=== PATIENT | female | born 1955 | race Caucasian/White ===

== ENCOUNTER → 2021-07-01 | Outpatient (CLI) | payer MEDICARE, MEDICAID ==
[~2021-07-01] MED LIST: ACET-2267 PO; CALC-902 PO; DICL25TA PO; HYDR-3731 PO; HYDR2TAB6 PO; MAGN500C15 PO; MULT-974 PO; OMEG-82 PO
--- NOTE | 2021-07-01 12:36 | Diagnostic Imaging Report ---
EXAMINATION: Lumbosacral spine, 2 or 3 views. HISTORY: Lumbar pain. COMPARISON: None available. FINDINGS: There is severe degenerative disc disease at L3-L4 and L5-S1 with moderate degenerative disc disease at L4-L5 and L2-L3. Vertebral body heights are normal. No acute fracture is seen. There is right lateral listhesis of L3 on L4. There is mild retrolisthesis of L3 on L4. There is severe facet arthropathy at L4-L5. Surgical clips are seen in the pelvis. IMPRESSION: Severe degenerative disc and facet disease in the lumbar spine without acute fracture. Dictated by: Dictated on workstation # [id number]
== END ==
LOC: RAD FS 11:50
PROVIDERS: ATTEND Nurse Practitioner Family
DX: M47.816 Spondylosis without myelopathy or radiculopathy, lumbar region (principal); M51.36 Other intervertebral disc degeneration, lumbar region
CPT/HCPCS: 72100

== ENCOUNTER → 2021-09-30 | Outpatient (CLI) | payer MEDICARE, MEDICAID ==
--- NOTE | 2021-09-30 09:50 | Diagnostic Imaging Report ---
PROCEDURE: CT abdomen and pelvis without contrast. TECHNIQUE: Multiple contiguous axial images were obtained through the abdomen and pelvis without the use of intravenous contrast. Auto Exposure Controls were utilized during the CT exam to meet ALARA standards for radiation dose reduction. INDICATION: Right flank pain and right lower quadrant abdominal pain with nausea and vomiting. No prior studies are available for comparison. Imaging through the lung bases demonstrates what appears to be a large hiatal hernia. No discrete liver mass is identified. There are small stones layering within the gallbladder. No biliary duct dilatation is seen. Pancreas and spleen are unremarkable. No adrenal mass is detected. Left kidney is unremarkable. There is significant right-sided hydroureteronephrosis. The dilated right ureter is traced into the pelvis. There is a 6 mm calcific density which appears to be within the distal right ureter, several centimeters proximal to the UVJ. No bladder calculi are seen. Left-sided urinary tracts are unremarkable. Aorta is nonaneurysmal. There appear to be some surgical clips in the central retroperitoneum. Bowel loops are normal caliber. There is no obstruction. There is diverticulosis of the sigmoid but no evidence of acute diverticulitis. No free fluid or fluid collection is seen. No definite abdominal or pelvic lymphadenopathy is identified. IMPRESSION: 1. 6 mm distal right ureteric calculus producing significant right-sided hydroureteronephrosis. 2. Cholelithiasis. 3. Uncomplicated diverticulosis. Dictated by: Dictated on workstation # [id number]
== END ==
LOC: RAD FS 09:11
PROVIDERS: ATTEND Nurse Practitioner Family
DX: N13.30 Unspecified hydronephrosis (principal); N20.1 Calculus of ureter; K80.20 Calculus of gallbladder without cholecystitis without obstruction; K57.30 Diverticulosis of large intestine without perforation or abscess without bleeding
CPT/HCPCS: 74176

== ENCOUNTER → 2021-12-29 | Outpatient (CLI) | payer MEDICARE, MEDICAID ==
[~2021-12-29] MED LIST changes: -DICL25TA PO; +DICL25TA9 PO
--- NOTE | 2021-12-29 09:32 | Diagnostic Imaging Report ---
INDICATION: Foot fracture, pes planus COMPARISON: None. FINDINGS: 3 views the right foot demonstrate healing subacute to chronic fractures of the distal 2nd and 3rd metatarsals. There is pes planus. A prosthetic device is seen. There has been fusion of the talonavicular joint. There is no unexpected radiopaque foreign body. IMPRESSION: Healing subacute to chronic 2nd and 3rd metatarsal fractures. Dictated by: Dictated on workstation # [id number]
== END ==
LOC: RAD FS 08:33
PROVIDERS: ATTEND Nurse Practitioner Family
DX: S92.321D Displaced fracture of second metatarsal bone, right foot, subsequent encounter for fracture with routine healing (principal); S92.331D Displaced fracture of third metatarsal bone, right foot, subsequent encounter for fracture with routine healing; X58.XXXD Exposure to other specified factors, subsequent encounter
CPT/HCPCS: 73630

== ENCOUNTER → 2022-04-16 | Outpatient (CLI) | payer MEDICARE, MEDICAID ==
--- NOTE | 2022-04-16 10:24 | Diagnostic Imaging Report ---
INDICATION: Right wrist pain x1 week AP, oblique, and lateral and scaphoid views of the right wrist are obtained. No fracture or acute bony abnormality seen. Joint spaces are unremarkable. There is a slight ulnar minus variant. IMPRESSION: No acute bony abnormality of the right wrist. Dictated by: Dictated on workstation # [id number]
== END ==
LOC: RAD FS 09:48
PROVIDERS: ATTEND Nurse Practitioner Family
DX: M25.531 Pain in right wrist (principal)
CPT/HCPCS: 73110